=== PATIENT | male | born 1970 | race Hispanic/Latino ===

== ENCOUNTER 2023-04-23 20:03 | Emergency (ER) | payer OTHER ==
[~2023-04-23] VITALS: Ht 172.7 cm; Wt 105.2 kg
[2023-04-24] MEDS ORDERED: ACET-2079 PO (00:57)
[2023-04-24] MEDS: HYDROCODONE/ACETAMINOPHEN 5/325 MG TAB PO ONE (01:37)
[2023-04-24 01:38] VITALS: BP 130/75; PULSE 85; RESP 19; O2SAT 100
== END 2023-04-24 01:41 | disposition home or self-care (01) ==
LOC: EDH 20:03
DX: S89.92XA Unspecified injury of left lower leg, initial encounter (principal); E11.9 Type 2 diabetes mellitus without complications; I10 Essential (primary) hypertension; Z86.73 Personal history of transient ischemic attack (TIA), and cerebral infarction without residual deficits; Z90.49 Acquired absence of other specified parts of digestive tract; W18.39XA Other fall on same level, initial encounter; Y93.01 Activity, walking, marching and hiking; Y92.89 Other specified places as the place of occurrence of the external cause; Y99.8 Other external cause status
CPT/HCPCS: 73564

== ENCOUNTER → 2023-10-05 | Outpatient (CLI) | payer OTHER ==
[~2023-10-05] MED LIST: ACET-2079 PO
== END | disposition home or self-care (01) ==
LOC: RAH 13:53
PROVIDERS: ATTEND Student in an Organized Health Care Education/Training Program
DX: M17.12 Unilateral primary osteoarthritis, left knee (principal); M23.92 Unspecified internal derangement of left knee
CPT/HCPCS: 73721